=== PATIENT | female | born 2000 | race Caucasian/White ===

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

== ENCOUNTER 2021-06-11 12:45 | Emergency (ER) | payer SELFPAY ==
[~2021-06-11] VITALS: Ht 172.7 cm; Wt 110.5 kg
[~2021-06-11 12:45] MED LIST changes: +CEFTIN500 MG PO; +NEXPLANON68 MG ID; +PYRIDIUM 100MG100 MG PO; +ZOFRAN ODT4 MG PO
[2021-06-11 13:16] VITALS: TEMP 98.1
[2021-06-11 14:14] LABS: COLLECTION METHOD CLEAN CATCH
[2021-06-11 14:30] LABS: MUCOUS Present /lpf; PH 6 (5-8); URINE APPEARANCE Hazy; URINE BACTERIA Rare /hpf; URINE BILIRUBIN Negative (NEGATIVE); URINE BLOOD Negative (NEGATIVE); URINE COLOR Yellow; URINE GLUCOSE Negative (NEGATIVE); URINE KETONE Negative (NEGATIVE); URINE LEUKOCYTE ESTERASE Negative (NEGATIVE); URINE NITRATE Negative (NEGATIVE); URINE PROTEIN(semi-quant) Negative (NEGATIVE); URINE RBC 0-2 /hpf; URINE UROBILINOGEN Negative (NEGATIVE)
[2021-06-11] MEDS ORDERED: FLEXERIL 1010 MG/TAB PO (14:38)
[2021-06-11] MEDS ORDERED: MEDROL 4MG DOSPA4 MG PO (14:38)
[2021-06-11 15:18] VITALS: BP 105/85; PULSE 80
== END 2021-06-11 15:20 | disposition home or self-care (01) ==
LOC: COL.ER 12:45
PROVIDERS: Nurse Practitioner
DX: M54.5 Low back pain (principal); F17.290 Nicotine dependence, other tobacco product, uncomplicated
CPT/HCPCS: J1885; J2360

== ENCOUNTER 2021-06-28 12:43 | Emergency (ER) | payer SELFPAY ==
[~2021-06-28] VITALS: Ht 172.7 cm; Wt 110.5 kg
[~2021-06-28 12:43] MED LIST changes: +FLEXERIL 1010 MG/TAB PO; +MEDROL 4MG DOSPA4 MG PO
[2021-06-28 12:54] VITALS: BP 136/76; TEMP 97.9
[2021-06-28 13:41] LABS: COLLECTION METHOD CLEAN CATCH
[2021-06-28 13:49] LABS: MUCOUS Present /lpf; PH 5 (5-8); SQUAMOUS EPITHELIAL 0-2 /hpf; URINE APPEARANCE Hazy; URINE BACTERIA None Seen /hpf; URINE BILIRUBIN Negative (NEGATIVE); URINE BLOOD Negative (NEGATIVE); URINE COLOR Yellow; URINE GLUCOSE Negative (NEGATIVE); URINE KETONE Trace (NEGATIVE); URINE LEUKOCYTE ESTERASE Negative (NEGATIVE); URINE NITRATE Negative (NEGATIVE); URINE PROTEIN(semi-quant) Negative (NEGATIVE); URINE RBC 0-2 /hpf; URINE WBC 0-2 /hpf
[2021-06-28] MEDS ORDERED: FLEXERIL 1010 MG/TAB PO (15:29)
[2021-06-28] MEDS ORDERED: MOTRIN 800800 MG/TAB PO (15:29)
[2021-06-28] MEDS ORDERED: NORCO 325 MG-51 TAB PO (15:29)
[2021-06-28 15:41] VITALS: PULSE 78
== END 2021-06-28 15:41 | disposition home or self-care (01) ==
LOC: COL.ER 12:43
PROVIDERS: Personal Emergency Response Attendant
DX: M54.50 Low back pain, unspecified (principal); F17.290 Nicotine dependence, other tobacco product, uncomplicated